=== PATIENT | female | born 1980 | race American Indian/Alaskan Native ===

== ENCOUNTER 2017-05-24 07:07 | Emergency (ER) | payer BC, MEDICAID ==
[2017-05-24 07:28] VITALS: BMI 32.1
[2017-05-24 08:05] VITALS: RESP 19; O2SAT 98
--- NOTE | 2017-05-24 08:08 | ED PDOC ---
HPI: General Adult Time Seen by Provider: 05/24/17 07:52 Chief Complaint (Nursing): Abdominal Pain History Per: Patient History/Exam Limitations: no limitations Onset/Duration Of Symptoms: Other (x this morning) Current Symptoms Are (Timing): Still Present Additional Complaint(s): 36-year-old female, with a history of fibromyalgia, presents to ED with left mid -back and lateral chest pain since this morning associated with non-productive cough. No shortness of breath. No fever. Pain worse on inspiration. PMD: Provider TBD Past Medical History Reviewed: Historical Data, Nursing Documentation, Vital Signs Vital Signs: Last Vital Signs Temp 98.4 F 05/24/17 08:05 Pulse 73 05/24/17 08:05 Resp 19 05/24/17 08:05 BP 188/82 H 05/24/17 08:05 Pulse Ox 98 05/24/17 08:24 - Medical History PMH: Fibromyalgia, Migraine - Surgical History Other surgeries: myomectomy / laparoscopy - Family History Family History: States: Unknown Family Hx - Home Medications Home Medications: Ambulatory Orders Medication Instructions Recorded Acetaminophen/Butalbital/Caf 1 tab PO PRN PRN 01/26/15 [Fioricet] Ascorbic Acid/Bioflavonoid 1 tab PO DAILY 01/26/15 [Vitamin C] Azithromycin [Zithromax Z-Con] 250 mg PO DAILY #1 packet 01/26/15 Cholecalciferol (Vitamin D3) iu PO DAILY 01/26/15 [Vitamin D] Cyanocobalamin [Vitamin B12] mcg PO DAILY 01/26/15 Cyclobenzaprine HCl [Flexeril] 10 mg PO Q8 #20 tab 01/26/15 DULoxetine [Cymbalta] 60 mg PO BID 01/26/15 Vitamin E [Vitamin-E] iu PO PRN PRN 01/26/15 guaiFENesin/Codeine [Robitussin 5 ml PO Q4H PRN #200 ml 01/26/15 w/Codeine] Naproxen [Naprosyn] 500 mg PO Q12H #20 tab 06/25/15 Albuterol HFA [Ventolin HFA 90 2 puff IH Q4H #1 puff 05/24/17 mcg/actuation (8 g)] Azithromycin [Zithromax] 250 mg PO DAILY #6 tab 05/24/17 Benzonatate [Tessalon Perles] 100 mg PO Q8 #10 sgl 05/24/17 - Allergies Allergies/Adverse Reactions: Allergies Allergy/AdvReac Type Severity Reaction Status Date / Time [place] And Derivatives Allergy RASH Verified 06/25/15 14:56 morphine Allergy RASH Verified 06/25/15 14:56 Review of Systems ROS Statement: Except As Marked, All Systems Reviewed And Found Negative Constitutional: Negative for: Fever Cardiovascular: Positive for: Other (left mid-back and lateral chest pain) Respiratory: Positive for: Cough (non-productive). Negative for: Shortness of Breath Physical Exam - Reviewed Nursing Documentation Reviewed: Yes Vital Signs Reviewed: Yes - Physical Exam Cardiovascular/Chest: Positive for: Regular Rate, Rhythm, Other (no tenderness, no rash) Respiratory: Negative for: Rales, Rhonchi, Wheezing, Respiratory Distress Neurologic/Psych: Positive for: Alert, Oriented (x 3). Negative for: Motor/ Sensory Deficits - ECG O2 Sat by Pulse Oximetry: 98 (RA) Pulse Ox Interpretation: Normal Medical Decision Making Medical Decision Making: Time: 08:01 Plan: - ED Urine - Chest X-Ray Scribe Attestation: Documented by Rhett Werner, acting as a scribe for Jerry Arechiga MD Provider Scribe Attestation: All medical record entries made by the Scribe were at my direction and personally dictated by me. I have reviewed the chart and agree that the record accurately reflects my personal performance of the history, physical exam, medical decision making, and the department course for this patient. I have also personally directed, reviewed, and agree with the discharge instructions and disposition. Disposition - Clinical Impression Clinical Impression: Bronchitis - Patient ED Disposition Is Patient to be Admitted: No Counseled Patient/Family Regarding: Studies Performed, Diagnosis, Need For Followup, Rx Given - Disposition Referrals: LTAC, [facility] [Outside] Disposition: Routine/Home Disposition Time: 10:48 Condition: FAIR Prescriptions: Albuterol HFA [Ventolin HFA 90 mcg/actuation (8 g)] 2 puff IH Q4H #1 puff Azithromycin [Zithromax] 250 mg PO DAILY #6 tab Benzonatate [Tessalon Perles] 100 mg PO Q8 #10 sgl Instructions: Acute Bronchitis Forms: [facility] (Faroese)
--- NOTE | 2017-05-24 10:23 | RAD ---
HISTORY: cough COMPARISON: 01/26/2015 [facility] TECHNIQUE: Chest PA and lateral FINDINGS: LUNGS: No active pulmonary disease. PLEURA: No significant pleural effusion identified. No pneumothorax apparent. CARDIOVASCULAR: Normal. OSSEOUS STRUCTURES: No significant abnormalities. VISUALIZED UPPER ABDOMEN: Normal. OTHER FINDINGS: None. IMPRESSION: No active disease. No significant interval change compared to the prior examination(s).
[2017-05-24 11:00] VITALS: BP 128/78; PULSE 78; TEMP 97
== END 2017-05-24 11:00 | disposition home or self-care (01) ==
LOC: H.ER 07:07
DX: J40 Bronchitis, not specified as acute or chronic (principal); M79.7 Fibromyalgia